=== PATIENT | male | born 1995 | race Hispanic/Latino ===

== ENCOUNTER 2023-06-20 03:29 | Emergency (ER) | payer OTHER, SELFPAY ==
--- OUTSIDE RECORDS SUMMARY | 2023-06-20 03:32 | XMS REPORT | Continuity of Care Document ---
Author Name Unknown Address [address] [facility] [address] [place] [address] [facility] Address [address] [facility]. [address] [place] [address] Care Team Providers Care Emulsion Operator Name Role Phone Lab, Adc Fam Pob I Attending Clinician Unavailab Angelica Ybarra Attending Clinician Mikki RN, Shakira Escalante Attending Clinician Vaishali ANGELICA Rand Attending Clinician Unavailable Payers Payer Name Policy Type Policy Number Effective Date Expirati on Date Source Allergies, Adverse Reactions, Alerts Allergy Name Allergy Type Status Severity Reaction(s) Onset Date Inactive Date Treating Clinician Comments Source NO KNOWN ALLERGIE S Drug Class Active [facility] Social History Social Habit Start Date Stop Date Quantity Comments Source Sex Assigned At [facility] Exposure to SARS-CoV-2 (event) Yes [facility] Smoking Status Start Date Stop Date Source Unknown if ever smoked [facility] Medications Ordered Medication Name Filled Medication Name Start Date Stop Date Current Medication? Ordering Clinician Indication Dosage Frequency Signature (SIG) Comments Components Source traMADOL (ULTRAM) 50 mg tablet - 00:00: 00 Yes 50mg Take 1 tablet by mouth every 6 (six) hours as needed for Pain (scale 7-10). [facility] Encounters Start Date/Time End Date/Time Encounter Type Admission Type Attending Clinicians Care Facility Care Department Encounter ID Source 2022-10-09 11:23:12 2022-10-09 11:23:12 Outpatient [facility] [id number] Dwayne Raymond Krishna 2019-10-20 09:52:37 2019-10-20 10:12:37 Laboratory Only Lab, Adc Fam Pob I [facility] [id number] [facility] 2019-10-20 09:40:00 2019-10-20 09:40:00 Outpatient R [facility] [id number] [facility] 2019-10-20 00:00:00 2019-10-20 00:00:00 Telephone Shakira Aguiar [facility] [id number] [facility] 2019-09-27 13:00:00 2019-09-27 13:00:00 Outpatient R ANGELICA WOODARD [facility] [id number] [facility] Results Test Description Test Time Test Comments Results Result Co mments Source VITAMIN B 12 AND FOLIC [id number] 05:33:12* Test Item Value Reference Range Interpretation Comme nts VITAMIN B-12 (test code = 2840) 655 PG/ML 200-950 FOLIC ACID (test code = 2695) 12.0 UG/L SEE BELOW INTERPRETI VE RANGES DEFICIENCY . . . . . . . . . . . . . . . UG/L <4.0 POSSIBLE DEFICIENCY. . . . . . . . . . . UG/L 4.0-5.9 SUFFICIENT . . . . . . . . . . . . . . . UG/L >=6.0 LIPID [id number] 04:23:29* Test Item Value Reference Range Interpretation Comme nts CHOLESTEROL (test code = 2210) 225 MG/DL <200 H TRIGLYCERIDES (test code = 2232) 126 MG/DL <150 HDL CHOLESTEROL (test code = 2220) 65 MG/DL >39 CALC LDL CHOL (test code = 2237) 135 MG/DL <100 H NOTE: CALCULATED LDL IS BASED ON KONRAD-ZHANG METHOD WHICHINCLUDES ADJUSTABLE TRIGLYCERIDE:VLDL CHOLESTEROL RATIO.THIS FACTOR VARIES BY MEASURED TRIGLYCERIDE AND NON-HDLCHOLESTEROL CONCENTRATIONS WITH INCREASED CALCULATED LDL SEENIN HIGHER TRIGLYCERIDE OR LOWER NON-HDL SPECIMENS. FOR MOREINFORMATION, SEE CLIENT ANNOUNCEMENT AT [email or web address] RATIO LDL/HDL (test code = 2237) 2.08 RATIO <3.55 COMPREHENSIVE METABOLIC [id number] 04:23:29* Test Item Value Reference Range Interpretation Comme nts GLUCOSE (test code = 2216) 88 MG/DL 70-99 BUN (test code = 2207) 16 MG/DL 6-20 CREATININE (test code = 2213) 0.96 MG/DL 0.80-1.40 eGFR (2020 CKD-EPI) (test code = ) 111 ML/MIN/1.73 >60 CALC BUN/CREAT (test code = 2234) 17 RATIO 6-28 SODIUM (test code = 2230) 141 MEQ/L 133-146 POTASSIUM (test code = 2227) 3.8 MEQ/L 3.5-5.4 CHLORIDE (test code = 2214) 102 MEQ/L 95-107 CARBON DIOXIDE (test code = 2205) 26 MEQ/L 19-31 CALCIUM (test code = 2208) 9.7 MG/DL 8.5-10.5 PROTEIN, TOTAL (test code = 2228) 7.2 G/DL 6.1-8.3 ALBUMIN (test code = 2200) 5.0 G/DL 3.5-5.2 CALC GLOBULIN (test code = 2239) 2.2 G/DL 1.9-3.7 CALC A/G RATIO (test code = 2233) 2.3 RATIO 1.0-2.6 BILIRUBIN, TOTAL (test code = 2206) 0.4 MG/DL See_Comment [Automated me ssage] The system which generated this result transmitted reference range: <=1.2. The reference range was not used to interpret this result as normal/abnormal. ALKALINE PHOSPHATASE (test code = 2203) 81 U/L 40-115 AST (test code = 2217) 27 U/L 9-50 ALT (test code = 2218) 32 U/L 5-50 HEMOGLOBIN [id number] 03:09:50* Test Item Value Reference Range Interpretation Comme nts HEMOGLOBIN A1c (test code = 33943) 5.3 % 4.2-5.6 CBC W/AUTO DIFF WITH [id number] 02:33:59* Test Item Value Reference Range Interpretation Comme nts WBC (test code = 1001) 6.2 K/UL 3.5-11.0 RBC (test code = 1002) 4.96 M/UL 4.50-6.10 HEMOGLOBIN (test code = 1003) 15.2 G/DL 13.5-17.0 HEMATOCRIT (test code = 1004) 43.7 % 40.0-51.0 MCV (test code = 1005) 88.1 fL 80.0-99.0 MCH (test code = 1006) 30.6 PG 25.0-33.0 MCHC (test code = 1007) 34.8 G/DL 31.0-36.0 RDW (test code = 1038) 12.6 % 11.5-15.0 NEUTROPHILS (test code = 1008) 60.7 % LYMPHOCYTES (test code = 1010) 28.9 % MONOCYTES (test code = 1011) 8.9 % EOSINOPHILS (test code = 1012) 0.5 % BASOPHILS (test code = 1013) 0.8 % IMMATURE GRANULOCYTES (test code = 1036) 0.2 % NUCLEATED RBCS (test code = 1065) 0.0 /100 WBC'S See_Comment [Automated [employer] ge] The system which generated this result transmitted reference range: 0.0. The reference range was not used to interpret this result as normal/abnormal. PLATELET COUNT (test code = 1015) 280 K/UL 130-400 ABSOLUTE NEUTROPHILS (test code = 1066) 3.74 K/UL 1.50-7.50 ABSOLUTE LYMPHOCYTES (test code = 1067) 1.78 K/UL 1.00-4.00 ABSOLUTE MONOCYTES (test code = 1068) 0.55 K/UL 0.20-1.00 ABSOLUTE EOSINOPHILS (test code = 1040) 0.03 K/UL 0.00-0.50 ABSOLUTE BASOPHILS (test code = 1069) 0.05 K/UL 0.00-0.20 ABS IMMATURE GRANULOCYTES (test code = 1020) 0.01 K/UL 0.00-0.10 ABS NUCLEATED RBCS (test code = 48738) 0.00 K/UL 0.00-0.11
[2023-06-20] MEDS ORDERED: ONDANSETRON 4 MG/2 ML VIAL ONE (04:03)
[2023-06-20] MEDS ORDERED: FAMOTIDINE 20 MG/2 ML VIAL IV ONE (04:04)
[2023-06-20] MEDS ORDERED: KETOROLAC 30 MG/ML INJ ONE (04:04)
[2023-06-20] MEDS ORDERED: NA CHLORIDE 0.9% 1,000 ML ONE (04:04)
[2023-06-20 04:07] LABS: Absolute Lymphocytes (CBC) 1.4 K/uL (0.7-4.9); Absolute Monocytes 0.7 K/uL (0.1-1.3); Absolute Neutrophil 3.3 K/uL (1.8-8.0); Basophils % 0.8 % (0-1.3); Eosinophils % 0.8 % (0-4.4); Hematocrit 39.2 % (39.6-49.0); Hemoglobin 13.5 g/dL (13.6-17.9); Lymphocytes % 25.5 % (15.3-44.8); MCH 30.2 pg (27.0-35.0); MCHC 34.4 g/dL (32.0-36.0); MPV 6.7 fL (7.6-11.3); Monocytes % 12.4 % (3.3-12.3); Neutrophils % 60.5 % (41.7-73.7); Nucleated Red Blood Cells % 0.2 % (0-0); Platelets 236 thou/uL (152-406); RBC Red Blood Cell Count 4.45 M/uL (4.33-5.43); Red Cell Distribution Width 13.4 % (12.1-15.2)
[2023-06-20 04:28] LABS: ALT/SGPT 42 U/L (16-61); AST/SGOT 25 U/L (15-37); Albumin 3.7 g/dL (3.4-5.0); Albumin/Globulin Ratio 1.1 (1.1-1.8); Alkaline Phosphatase 91 U/L (45-117); Anion Gap 8.4 mEq/L (5.0-15.0); BUN Blood Urea Nitrogen 14 mg/dL (7-18); Bicarbonate 25 mEq/L (21-32); Bilirubin Direct 0.1 mg/dL (0-0.2); Bilirubin Indirect, Calculated 0.2 mg/dL (0.2-0.8); Bilirubin Total 0.3 mg/dL (0.2-1.0); Globulin 3.4 g/dL (2.3-3.5); Glomerular Filtration Rate 116 ml/min (=/>90); Glucose Level 88 mg/dL (74-106); Magnesium 2.4 mg/dL (1.6-2.4); Potassium 3.4 mEq/L (3.5-5.1); Protein, Total 7.1 g/dL (6.4-8.2); SARS-CoV-2 Antigen CONTROL BLUE LINE VIS/BG OK; SARS-CoV-2 Antigen Rapid Res Negative (Negative); Sodium Level 139 mEq/L (136-145)
[2023-06-20 04:30] LABS: Troponin High Sensitivity < 3.0 pg/mL (<58.9)
--- NOTE | 2023-06-20 07:15 | EDPHYS ---
Physician Documentation [facility] Name: Karan Sanchez II Age: 28 yrs Sex: Male : 1995 Arrival Date: 06/20/2023 Time: 03:29 Bed 7 Private MD: Jam Randle HPI: 06/19 03:35 This 28 yrs old Male presents to ER via Ambulatory with complaints of cp Epigastric Pain and Chest Pain. 03:35 The patient presents with abdominal pain in the epigastric area. cp 03:35 Onset: The symptoms/episode began/occurred yesterday. The symptoms radiate to left side cp of chest. Associated signs and symptoms: Pertinent positives: cough, sore throat. Historical: - Allergies: 03:33 No Known Allergies; jb4 - PMHx: 03:33 None; jb4 - PSHx: 03:33 None; jb4 - Immunization history:: Adult Immunizations up to date. - Infectious Disease History:: Denies. - Social history:: Smoking status: Patient denies any tobacco usage or history of. ROS: 03:40 Constitutional: Positive for body aches, Negative for chills, fever, poor PO intake, cp 03:40 Cardiovascular: Positive for chest pain, cp 03:40 Respiratory: Positive for cough, Negative for shortness of breath, wheezing, 03:40 Eyes: Negative for injury, pain, redness, and discharge, cp 03:40 ENT: Negative for drainage from ear(s), ear pain, sore throat, cp Exam: 03:37 ECG was reviewed by the Attending Physician. cp 03:45 Constitutional: The patient appears in no acute distress, alert, awake, cp non-diaphoretic, non-toxic, well developed, well nourished, anxious, 03:45 Head/Face: Normocephalic, atraumatic. cp 03:45 Eyes: Periorbital structures: appear normal, Conjunctiva: normal, no exudate, no injection, Sclera: no appreciated abnormality, Lids and lashes: appear normal, bilaterally, 03:45 ENT: External ear(s): are unremarkable, Nose: is normal, Mouth: Lips: moist, Oral mucosa: pink and intact, moist, Posterior pharynx: Airway: no evidence of obstruction, patent, Tonsils: no enlargement, no exudate, swelling, is not appreciated, erythema, that is mild, exudate, is not appreciated, 03:45 Neck: ROM/movement: is normal, is supple, without pain, no range of motions limitations, no meningismus, no nuchal rigidity, 03:45 Chest/axilla: Inspection: normal, Palpation: crepitus, is not appreciated, tenderness, is not appreciated, 03:45 Cardiovascular: Rate: normal, Rhythm: regular, Edema: is not appreciated, JVD: is not appreciated, 03:45 Respiratory: the patient does not display signs of respiratory distress, Respirations: normal, no use of accessory muscles, no retractions, labored breathing, is not present, Breath sounds: are clear throughout, no decreased breath sounds, no stridor, no wheezing, 03:45 Abdomen/GI: Inspection: abdomen appears normal, Bowel sounds: active, all quadrants, Palpation: soft, in all quadrants, mild abdominal tenderness, in the epigastric area, Vital Signs: 03:30 BP 147 / 91; Pulse 83; Resp 16; Pulse Ox 99% on R/A; cm10 03:31 BP 153 / 100; Pulse 93; Resp 16; Temp 98.2(O); Pulse Ox 99% on R/A; Weight 54.43 kg jb4 (R); Height 5 ft. 7 in. (R); Pain 7/10; 03:45 BP 131 / 90; Pulse 79; Resp 15; Pulse Ox 98% on R/A; cm10 04:00 BP 129 / 91; Pulse 84; Resp 16; Pulse Ox 98% on R/A; cm10 04:15 BP 129 / 83; Pulse 71; Resp 16; Pulse Ox 100% on R/A; cm10 04:30 BP 127 / 85; Pulse 74; Resp 16; Pulse Ox 100% on R/A; cm10 07:19 BP 117 / 86; Pulse 66; Resp 16; Pulse Ox 99% ; ko1 03:31 Body Mass Index 18.79 (54.43 kg, 170.18 cm) 4 03:31 Pain Scale: Adult jb4 MDM: 03:32 Patient medically screened. cp 04:00 Differential diagnosis: appendicitis, cholecystitis, Cholelithiasis, diverticulitis, cp gastritis, gastroesophageal reflux disease, non-specific abd pain, pancreatitis, Ureterolithiasis, urinary tract infection. 06:59 Differential diagnosis: abnormal EKG, acute myocardial infarction, acute pericarditis, sally anxiety, chest wall pain, Cholelithiasis costochondritis, esophagitis, gastritis, gastroesophageal reflux disease (GERD), pancreatitis, pneumonia, unstable angina. HEART Score: History: Slightly Suspicious (0), ECG: Normal (0), Age: < or = 45 years (0), Risk Factors: No Risk Factors Known (0), Troponin: < or = 1 x Normal Limit (0). AMBROCIO Risk Score: TOTAL SCORE = 0. Data reviewed: vital signs, nurses notes, lab test result(s), EKG, radiologic studies, CT scan. Consideration of Admission/Observation Escalation of care including admission/observation considered. I considered the following discharge prescriptions or medication management in the emergency department Medications were administered in the Emergency Department. See MAR. Independent interpretation of the following test(s) in the Emergency Department EKG: See my EKG interpretation above. Test considered but Not performed: Ultrasound no abd usg. 06/19 03:42 Order name: Basic Metabolic Panel; Complete Time: 04:38 cp 06/19 04:38 Interpretation: Normal except: K 3.4; CL 109. cp 06/19 03:42 Order name: CBC with Diff; Complete Time: 04:38 cp 06/19 04:38 Interpretation: Normal except: HGB 13.5; HCT 39.2; MPV 6.7; MN% 12.4. cp 06/19 03:42 Order name: D-Dimer; Complete Time: 04:38 cp 06/19 03:42 Order name: LFT's; Complete Time: 04:38 cp 06/19 03:42 Order name: Magnesium; Complete Time: 04:38 cp 06/19 03:42 Order name: Troponin HS; Complete Time: 04:38 cp 06/19 04:38 Interpretation: Troponin HS < 3.0; Reviewed. cp 06/19 03:42 Order name: Influenza Screen (a \T\ B); Complete Time: 04:38 cp 06/19 03:42 Order name: Strep cp 06/19 03:42 Order name: SARS RAPID; Complete Time: 04:38 cp 06/19 04:32 Order name: Throat Culture EDMS 06/19 03:42 Order name: XRAY Chest (1 view) cp 06/19 05:22 Order name: CT Abd/Pelvis - IV Contrast Only cp 06/19 03:42 Order name: Cardiac monitoring; Complete Time: 04:24 cp 06/19 03:42 Order name: EKG - Nurse/Tech; Complete Time: 03:58 cp 06/19 03:42 Order name: IV Saline Lock; Complete Time: 03:58 cp 06/19 03:42 Order name: Labs collected and sent; Complete Time: 03:58 cp 06/19 03:42 Order name: O2 Per Protocol; Complete Time: 03:58 cp 06/19 03:42 Order name: O2 Sat Monitoring; Complete Time: 03:58 cp EC:37 Rate is 79 beats/min. Rhythm is regular. MO interval is normal. QRS interval is normal. cp QT interval is normal. T waves are Inverted in lead aVR. Interpreted by me. Reviewed by me. Administered Medications: 04:10 Drug: Ketorolac IVP 15 mg IVP once Route: IVP; Site: right forearm; pf1 05:37 Follow up: Response: No adverse reaction cm10 04:10 Drug: NS 0.9% IV 1000 ml IV at 500 ml/hr Per protocol; 1000 mL bolus Route: IV; Rate: pf1 500 ml/hr; Site: right forearm; 05:37 Follow up: Response: No adverse reaction; IV Status: Completed infusion; IV Intake: cm10 1000ml 04:10 Drug: Famotidine IVP 20 mg IVP once; dilute with 10 mL 0.9% NaCl; give over 2 minutes pf1 Route: IVP; Site: right forearm; 05:37 Follow up: Response: No adverse reaction cm10 04:10 Drug: Ondansetron IVP 4 mg IVP once; over 2 minutes Route: IVP; Site: right forearm; pf1 05:37 Follow up: Response: No adverse reaction cm10 Disposition: 06:39 Co-signature as Attending Physician, Jam Juarez MD I agree with the assessment and sally plan of care. Disposition Summary: 06/20/23 07:14 Discharge Ordered Notes: Location: Home sally Problem: new sally Symptoms: have improved sally Condition: Stable sally Diagnosis - Chest pain, unspecified sally - Epigastric abdominal tenderness sally Followup: sally - With: Private Physician - When: 2 - 3 days - Reason: Recheck today's complaints, Continuance of care, Re-evaluation by your physician Discharge Instructions: - Discharge Summary Sheet sally - Abdominal Pain, Adult sally - Nonspecific Chest Pain, Adult sally - Nonspecific Chest Pain, Adult, [id number] [facility] Forms: - Medication Reconciliation Form sally - Antibiotic Education sally - Prescription Opioid Use sally - Patient Portal Instructions [facility] - Leadership Thank You Letter [facility] Prescriptions: - ondansetron 4 mg Oral Tablet,disintegrating - take 1 tablet ORAL route every 6-8 hours for 5 days; 20 tablet; Refills: 0, [facility] Product Selection Permitted - Pepcid 20 mg Oral tablet - take 1 tablet ORAL route every 12 hours for 21 days; 42 tablet; Refills: 0, [facility] Product Selection Permitted Signatures: Dispatcher [employer] EDMS Jam Juarez MD MD cha Page, Corey, PA PA Elliott Em RN RN jb4 Lola Fermin RN RN pf1 Brittany Silverman RN cm10 Corrections: (The following items were deleted from the chart) 03:43 03:43 Chest Single View+RAD.RAD.BRZ ordered. EDAZ EDMS 06:01 03:35 This 28 yrs old Male presents to ER via Ambulatory with complaints of cp Chest Pain. cp
--- NOTE | 2023-06-20 07:15 | ER ---
Nurse's Notes [facility] Name: Karan Sanchez II Age: 28 yrs Sex: Male : 1995 Arrival Date: 06/20/2023 Time: 03:29 Bed 7 Private MD: Diagnosis: Chest pain, unspecified;Epigastric abdominal tenderness Presentation: 06/19 03:31 Chief complaint: Patient states: Yesterday I started having abdominal pain, today it jb4 moved to my epigastric area to my chest. Now it is in my chest radiating to my left shoulder and mid back. It is like a hunger pain that never went away, it is a 7/10. It started getting worse around 2130 to 2200. Coronavirus screen: At this time, the client does not indicate any symptoms associated with coronavirus-19. Ebola Screen: No symptoms or risks identified at this time. Initial Sepsis Screen: Does the patient meet any 2 criteria? HR > 90 bpm. Yes Does the patient have a suspected source of infection? No. Patient's initial sepsis screen is negative. Risk Assessment: Do you want to hurt yourself or someone else? Patient reports no desire to harm self or others. Onset of symptoms was June 20, 2023. Transition of care: patient was not received from another setting of care. 03:31 Method Of Arrival: Ambulatory jb4 03:31 Acuity: FABIOLA 2 jb4 Triage Assessment: 03:33 General: Appears in no apparent distress. uncomfortable, Behavior is cooperative, jb4 anxious. Pain: Complains of pain in chest Pain radiates to mid back area and left arm Pain currently is 7 out of 10 on a pain scale. Quality of pain is described as hunger pain Pain began 2-3 days ago. Cardiovascular: Patient's skin is warm and dry. Respiratory: Airway is patent Respiratory effort is even, unlabored, Respiratory pattern is regular, symmetrical. Derm: Skin is intact, Skin is pink, warm \T\ dry. Historical: - Allergies: 03:33 No Known Allergies; jb4 - PMHx: 03:33 None; jb4 - PSHx: 03:33 None; jb4 - Immunization history:: Adult Immunizations up to date. - Infectious Disease History:: Denies. - Social history:: Smoking status: Patient denies any tobacco usage or history of. Screenin:40 [facility] ED Fall Risk Assessment (Adult) History of falling in the last 3 months, pf1 including since admission No falls in past 3 months (0 pts) Confusion or Disorientation No (0 pts) Intoxicated or Sedated No (0 pts) Impaired Gait No (0 pts) Mobility Assist Device Used No (0 pt) Altered Elimination No (0 pt) Score/Fall Risk Level 0 - 2 = Low Risk Oriented to surroundings, Maintained a safe environment, Educated pt \T\ family on fall prevention, incl call for assistance when getting out of bed, Assessed \T\ reinforced patient's understanding of fall precautions, Provided non-skid footwear, Hourly rounding (assess needs \T\ fall precautionary measures) done, Used ambulatory aids as needed (educated on \T\ assisted with), Used gait belt as appropriate. Abuse screen: Denies threats or abuse. Nutritional screening: No deficits noted. Tuberculosis screening: No symptoms or risk factors identified. Assessment: 03:35 General: Appears in no apparent distress. comfortable, well groomed, well developed, pf1 Behavior is calm, cooperative, appropriate for age, quiet. 03:35 Pain: Complains of pain in mid back area, chest, epigastric region and sore throat. pf1 Neuro: No deficits noted. Level of Consciousness is awake, alert, obeys commands, Oriented to person, place, time, situation. Cardiovascular: Reports chest pain, Capillary refill < 3 seconds Patient's skin is warm and dry. Respiratory: Reports cough that is Airway is patent Respiratory effort is even, unlabored, Respiratory pattern is regular, symmetrical, Breath sounds are clear bilaterally. GI: Abdomen is flat, non-distended, Bowel sounds present X 4 quads. Reports epigastric pain. : No deficits noted. No signs and/or symptoms were reported regarding the genitourinary system. EENT: Reports pain in sore throat. Derm: No deficits noted. No signs and/or symptoms reported regarding the dermatologic system. Musculoskeletal: Reports pain in back and mid back area. 04:24 Reassessment: Patient appears in no apparent distress at this time. Patient and/or pf1 family updated on plan of care and expected duration. Pain level reassessed. Patient is alert, oriented x 3, equal unlabored respirations, skin warm/dry/pink. 07:22 Reassessment: Patient appears in no apparent distress at this time. Patient and/or ko1 family updated on plan of care and expected duration. Pain level reassessed. Patient is alert, oriented x 3, equal unlabored respirations, skin warm/dry/pink. Pain: Denies pain. 07:23 Reassessment: awaiting negative CT result to discharge patient, per Dr Juarez. ko1 Vital Signs: 03:30 BP 147 / 91; Pulse 83; Resp 16; Pulse Ox 99% on R/A; cm10 03:31 BP 153 / 100; Pulse 93; Resp 16; Temp 98.2(O); Pulse Ox 99% on R/A; Weight 54.43 kg jb4 (R); Height 5 ft. 7 in. (R); Pain 7/10; 03:45 BP 131 / 90; Pulse 79; Resp 15; Pulse Ox 98% on R/A; cm10 04:00 BP 129 / 91; Pulse 84; Resp 16; Pulse Ox 98% on R/A; cm10 04:15 BP 129 / 83; Pulse 71; Resp 16; Pulse Ox 100% on R/A; cm10 04:30 BP 127 / 85; Pulse 74; Resp 16; Pulse Ox 100% on R/A; cm10 07:19 BP 117 / 86; Pulse 66; Resp 16; Pulse Ox 99% ; ko1 03:31 Body Mass Index 18.79 (54.43 kg, 170.18 cm) jb4 03:31 Pain Scale: Adult jb4 ED Course: 03:30 Patient arrived in ED. jb4 03:32 Jam Tuttle PA is PHCP. cp 03:32 Jam Juarez MD is Attending Physician. cp 03:33 Triage completed. jb4 03:33 Arm band placed on. jb4 03:58 Basic Metabolic Panel Sent. cm10 03:58 CBC with Diff Sent. cm10 03:58 D-Dimer Sent. cm10 03:58 LFT's Sent. cm10 03:58 Magnesium Sent. cm10 03:58 Troponin HS Sent. cm10 03:58 SARS RAPID Sent. cm10 03:58 Strep Sent. cm10 03:58 Influenza Screen (a \T\ B) Sent. cm10 03:58 Inserted saline lock: 18 gauge in right antecubital area, using aseptic technique. cm10 Blood collected. O2 via Room air. 03:58 Initial lab(s) drawn, by ED staff, sent to lab. EKG done, by ED staff, reviewed by pf1 Jam BONNER. 03:58 No provider procedures requiring assistance completed. COVID swab sent to lab. Strep pf1 swab sent to lab. flu swab sent. 04:01 XRAY Chest (1 view) In Process Unspecified. EDMS 06:12 CT Abd/Pelvis - IV Contrast Only In Process Unspecified. EDMS 07:19 Joanne Tong, RN is Primary Nurse. ko1 07:19 Patient has correct armband on for positive identification. Bed in low position. Call ko1 light in reach. Provided Education on: na. Client placed on continuous cardiac and pulse oximetry monitoring. NIBP monitoring applied. library monitor on. 07:19 IV discontinued, intact, bleeding controlled, No redness/swelling at site. Pressure ko1 dressing applied. Administered Medications: 04:10 Drug: Ketorolac IVP 15 mg IVP once Route: IVP; Site: right forearm; pf1 05:37 Follow up: Response: No adverse reaction cm10 04:10 Drug: NS 0.9% IV 1000 ml IV at 500 ml/hr Per protocol; 1000 mL bolus Route: IV; Rate: pf1 500 ml/hr; Site: right forearm; 05:37 Follow up: Response: No adverse reaction; IV Status: Completed infusion; IV Intake: cm10 1000ml 04:10 Drug: Famotidine IVP 20 mg IVP once; dilute with 10 mL 0.9% NaCl; give over 2 minutes pf1 Route: IVP; Site: right forearm; 05:37 Follow up: Response: No adverse reaction cm10 04:10 Drug: Ondansetron IVP 4 mg IVP once; over 2 minutes Route: IVP; Site: right forearm; pf1 05:37 Follow up: Response: No adverse reaction cm10 Medication: 07:19 VIS not applicable for this client. ko1 Intake: 05:37 IV: 1000ml; Total: 1000ml. cm10 Outcome: 07:14 Discharge ordered by . sally 07:40 Discharged to home ambulatory, with significant other, kc6 07:40 Condition: improved 07:40 Discharge instructions given to patient, significant other, Instructed on discharge instructions, follow up and referral plans. medication usage, Demonstrated understanding of instructions, follow-up care, medications, Prescriptions given X 2, 07:40 Patient left the ED. kc6 Signatures: Dispatcher [employer] EDMS Jam Juarez MD MD cha Page, Corey, Elliott Velez cp RN RN jb4 Wendi Santo RN RN kc6 Joanne Tong RN RN ko1 Lola Fermin RN RN pf1 Brittany Silverman RN RN cm10
[2023-06-20 08:12] VITALS: BP 117/86; TEMP 98.2; O2SAT 99
--- NOTE | 2023-06-20 15:27 | RAD REPORT ---
EXAM DESCRIPTION: CT - Abdomen Pelvis W Contrast - 06/20/2023 7:24 am Abdomen Pelvis W Contrast RadLex: CT ABDOMEN PELVIS WITH IV CONTRAST CLINICAL HISTORY: 28 years Male; EPIGASTRIC PAIN; IV ONLY Bed Name: 7 TECHNIQUE: CT of the abdomen and pelvis with intravenous contrast. All CT scans at this facility use dose modulation, iterative reconstruction, and/or weight based dosi ng when appropriate to reduce radiation dose to as low as reasonably achievable. COMPARISON: None. FINDINGS: Lower thorax: Lung bases are clear Abdomen: Stomach: Within normal limits Liver: No focal lesions. No intrahepatic ductal distention. Gallbladder: Nondistended Pancreas: Within normal limits Spleen: Within normal limits Right kidney: No hydronephrosis. Subcentimeter hypodensities, too small to characterize. Left kidney: No hydronephrosis. Subcentimeter hypodensities, too small to characterize. Adrenal glands: Within normal limits Vascular structures: Within normal limits Nodes: No lymphadenopathy by size criteria Pelvis: Small bowel: No significant distention. Appendix: Within normal limits Colon: No distention or acute pericolonic edema. Peritoneum: No free intraperitoneal fluid or air. Bones: No acute bone findings. Bladder: Unremarkable. Reproductive organs: No acute findings. IMPRESSION: No acute abdominopelvic findings. Electronically signed by: Elaine Alonzo MD 06/20/2023 07:15 AM CDT Due to temporary technical issues with the PACS/Fluency reporting system, reports are being signed by the in house radiologists without review as a courtesy to insure prompt reporting. The interpreting radiologist is fully responsible for the content of the report.
--- NOTE | 2023-06-20 15:35 | RAD REPORT ---
EXAM DESCRIPTION: RAD - Chest Single View - 06/20/2023 4:00 am CLINICAL HISTORY: CHEST PAIN COMPARISON: None TECHNIQUE: Single AP view of the chest. FINDINGS: Lung volumes adequate. Cardiac silhouette is normal in size. No pneumothorax. No large pleural effusion. No focal consolidation. No acute bony finding. IMPRESSION: No evidence of acute cardiopulmonary disease. Electronically signed by: Elaine Alonzo MD 06/20/2023 04:12 AM CDT Due to temporary technical issues with the PACS/Fluency reporting system, reports are being signed by the in house radiologists without review as a courtesy to insure prompt reporting. The interpreting radiologist is fully responsible for the content of the report.
--- NOTE | 2023-06-21 12:58 | EKG ---
Test Date: 2023-06-20 Test Time: 03:32:36 [place]ach[place] Folder: MARCIAL MEASUREMENT RESULTS: Intervals: Rate: 79 ME: 154 QRSD: 86 QT: 370 QTc: 424 [place]: P: 64 ME: 154 QRS: 102 T: 56 INTERPRETIVE STATEMENTS: Normal sinus rhythm Normal ECG No previous ECG available for comparison Electronically Signed On 06-21-23 12:55:15 CDT by Dillon Ewing
== END 2023-06-20 07:40 | disposition home or self-care (01) ==
LOC: ER 03:29
DX: R07.9 Chest pain, unspecified (principal); R10.816 Epigastric abdominal tenderness; Z11.52 Encounter for screening for COVID-19
CPT/HCPCS: 36415; 71045; 74177; 80048; 80076; 83735; 84484; 85025; 85379; 87070; 87081; 87804; 87811; 93005; 96361; 96374; 96375; 99285; J2405; J7030; Q9967